=== PATIENT | female | born 1990 | race Caucasian/White ===

== ENCOUNTER 2018-05-18 10:44 | Inpatient (IN) | payer MEDICAID ==
[~2018-05-18] VITALS: Ht 167.6 cm; Wt 90.0 kg
[2018-05-18] VITALS (38 sets, daily range): BP systolic 102–146; BP diastolic 52–93; PULSE 83–126; TEMP 97.6–99
[2018-05-18] MEDS ORDERED: PRENATAL (11:04)
[2018-05-18 13:28] LABS: BASO # 0.1 (0.0-0.2); BASO % 0.3 % (0.0-2.0); EOS % 0.1 % (0-4.0); GRAN # 17.2 (1.4-6.5); GRAN % 88.1 % (42.2-75.2); HEMOGLOBIN 11.1 g/dl (12.5-16.0); LYMPH # 1.6 (1.2-3.4); LYMPH % 8.1 % (20.0-51.0); MEAN CELL VOLUME 95 fl (80.0-100.0); MEAN CORPUSCULAR HEMOGLOBIN 31 pg (27.0-31.0); MEAN CORPUSCULAR HGB CONC 33 g/dl (33.0-37.0); MEAN PLATELET VOLUME 10.3 fl (7.4-10.4); MONO # 0.6 (0.1-0.6); MONO % 2.9 % (1.7-9.3); PLATELET COUNT 190 K/mm3 (130-400); RED BLOOD COUNT 3.57 M/mm3 (4.10-5.30); REDCELL DISTRIBUTION WIDTH-CV 12.9 % (11.5-14.5)
[2018-05-18 13:37] LABS: HEMATOCRIT 33.9 % (37.0-47.0)
[2018-05-19 04:00] VITALS: BP 108/61; PULSE 85; TEMP 98.5
[2018-05-19 08:45] VITALS: BP 102/65; PULSE 85; TEMP 98.1
[2018-05-19 16:40] VITALS: BP 112/64; PULSE 94; TEMP 98.1
[2018-05-19 23:00] VITALS: BP 118/72; PULSE 72; TEMP 98.3
[2018-05-20 09:32] VITALS: BP 107/80; PULSE 87; TEMP 98
[2018-05-20] MEDS ORDERED: IBU600 MG PO (10:29)
[2018-05-20] MEDS ORDERED: PERCOCET 325 MG1 TA2 PO (10:30)
[2018-05-20] MEDS ORDERED: BREASTPUMP MC (10:32)
== END 2018-05-20 11:45 | disposition home or self-care (01) | DRG 807 ==
LOC: LDRO 10:44 → LDR 12:11 → OB 12:11
PROVIDERS: Obstetrics & Gynecology
PROC: 10E0XZZ Delivery of Products of Conception, External Approach (ICD-10-PCS; principal; 2018-05-18)
PROC: 0KQM0ZZ Repair Perineum Muscle, Open Approach (ICD-10-PCS; 2018-05-18)
DX: O62.1 Secondary uterine inertia (principal); Z37.0 Single live birth; Z3A.39 39 weeks gestation of pregnancy; O70.1 Second degree perineal laceration during delivery; O77.0 Labor and delivery complicated by meconium in amniotic fluid; O26.893 Other specified pregnancy related conditions, third trimester; Z67.41 Type O blood, Rh negative; J45.909 Unspecified asthma, uncomplicated
CPT/HCPCS: J2405; J2590; J2791; J2795; J7120